=== PATIENT | female | born 1985 | race Caucasian/White ===

== ENCOUNTER 2016-12-30 16:26 | Outpatient (CLI) | payer MEDICAID ==
[~2016-12-30] VITALS: Ht 154.9 cm; Wt 90.0 kg
[2016-12-30 16:32] VITALS: Ht 154.9 cm; Wt 90.0 kg
[2016-12-30 16:33] VITALS: BP 147/72; PULSE 86; RESP 19
[2016-12-30] MEDS ORDERED: PRENAT PO (16:36)
--- NOTE | 2016-12-30 21:20 | RADRPT ---
PROCEDURE: US OB biophysical profile. CLINICAL INDICATION: decreased movements, post dates TECHNIQUE: Multiple sonographic images of the pelvis were obtained. The images were reviewed on a PACS workstation. COMPARISON: No prior studies are available for comparison. FINDINGS: There is a single viable intrauterine gestation. Cardiac activity is present with 156 beats per min shonda. There is a vertex presentation. The placenta is fundal. There is no evidence of placental abruption. There is a normal amount of amniotic fluid with an JAYY = 9.2 cm. Biophysical profile: movement 2/2 tone 2/2. breathing 2/2 JAYY 2/2 Total 04/16 RPTAT: AA . IMPRESSION: Normal biophysical profile. . .Inderjit Hdez MD, Date Time Electronically viewed and signed by .Inderjit Hdez MD, MD on 12/30/2016 21:19 .S/
--- NOTE | 2016-12-30 21:22 | RADRPT ---
PROCEDURE: US OB. CLINICAL INDICATION: Size and dates TECHNIQUE: Multiple sonographic images of the pelvis and gravid uterus were obtained. The images were reviewed on a PACS workstation. COMPARISON: No prior studies are available for comparison. FINDINGS: There is a single viable intrauterine gestation. Cardiac activity is present with 156 beats per min shonda. There is a vertex presentation. The placenta is fundal. There is no evidence of placental abruption. There is a normal amount of amniotic fluid with an JAYY = 9.2 cm. Measurements were made in order to determine age. The results are as follows: BPD =9.5 cm HC =34.1 cm AC =35.6 cm FL =7.7 cm Estimated gestational age of approximately 39 weeks and 2 days based on ultrasound measurements. Clinical age: 40 weeks and 1 day. The estimated date of delivery is 01/04/2017, based on ultrasound measurements. The EFW = 3766 g, 60%, based on LMP age. RPTAT: AA IMPRESSION: Single viable intrauterine gestation of approximately 39 weeks and 2 days based on ultrasound measu rements. .Inderjit Hdez MD, MD Date Time Electronically viewed and signed by .Inderjit Hdez MD, MD on 12/30/2016 21:22 .S/
--- NOTE | 2016-12-30 22:20 | TRIAGE ---
OB Triage Datetime Report Generated by CPN: 12/30/2016 22:20 Datetime: 12/30/2016 22:00 Stage of : OB Triage Labor Evaluation Frequency: 6-9 Monitor Mode: External Duration (sec)2399: 60-90 Quality: Mild Pattern: Normal: <= 5 Contractions in 10 Minutes Resting Tone [place]: Relaxed Heart Rate FHR Baseline Rate: 145 Monitor Mode: External US Variability: Moderate 6-25 bpm Accelerations: 15X15 Decelerations: None Pain Assessment Pain Scale: 0 Pain Presence: None/Denies Pain Type: N/A Pain Goal: 3 Datetime: 12/30/2016 21:58 Vaginal Exam Dilatation (cms): 1.0 Effacement (%): 30 Station: -3 Exam By: REICHE Membrane Status: Intact Datetime: 12/30/2016 21:00 Stage of : OB Triage Labor Evaluation Frequency: 6-9 Monitor Mode: External Duration (sec)2399: 60-90 Quality: Mild Pattern: Normal: <= 5 Contractions in 10 Minutes Resting Tone [place]: Relaxed Heart Rate FHR Baseline Rate: 145 Monitor Mode: External US Variability: Moderate 6-25 bpm Accelerations: 15X15 Decelerations: None Pain Assessment Pain Scale: 0 Pain Presence: None/Denies Pain Type: N/A Pain Goal: 3 Datetime: 12/30/2016 20:00 Stage of : OB Triage Labor Evaluation Frequency: 4-8 Monitor Mode: External Duration (sec)2399: 60-90 Quality: Mild Pattern: Normal: <= 5 Contractions in 10 Minutes Resting Tone [place]: Relaxed Heart Rate FHR Baseline Rate: 145 Monitor Mode: External US Variability: Moderate 6-25 bpm Accelerations: 15X15 Decelerations: None Category: Category I Pain Assessment Pain Scale: 0 Pain Presence: None/Denies Pain Type: N/A Pain Goal: 3 Datetime: 12/30/2016 19:00 Stage of : OB Triage Maternal Assessment Level of Consciousness: Fully Conscious DTR's/Clonus: DTRs 1+ Headache: Denies Breath Sounds, Left: Clear and Equal Breath Sounds, Right: Clear and Equal Nausea/Vomiting: Denies RUQ Epigastric Pain: Denies Labor Evaluation Frequency: IRREGULAR Monitor Mode: External Duration (sec)2399: 60-90 Quality: Mild Pattern: Normal: <= 5 Contractions in 10 Minutes Resting Tone [place]: Relaxed Heart Rate FHR Baseline Rate: 140 Monitor Mode: External US Variability: Moderate 6-25 bpm Accelerations: 15X15 Decelerations: None Pain Assessment Pain Scale: 0 Pain Presence: None/Denies Pain Type: N/A Pain Goal: 3 Membrane Status: Intact Datetime: 12/30/2016 18:00 Stage of : OB Triage Maternal Assessment Level of Consciousness: Fully Conscious DTR's/Clonus: DTRs 1+ Headache: Denies Breath Sounds, Left: Clear and Equal Breath Sounds, Right: Clear and Equal Nausea/Vomiting: Denies RUQ Epigastric Pain: Denies Labor Evaluation Frequency: IRREGULAR Monitor Mode: External Duration (sec)2399: 60-90 Quality: Mild Pattern: Normal: <= 5 Contractions in 10 Minutes Resting Tone [place]: Relaxed Heart Rate FHR Baseline Rate: 140 Monitor Mode: External US Variability: Moderate 6-25 bpm Accelerations: 15X15 Decelerations: None Category: Category I Pain Assessment Pain Scale: 0 Pain Presence: None/Denies Pain Type: N/A Pain Goal: 3 Membrane Status: Intact Datetime: 12/30/2016 17:00 Maternal Assessment Level of Consciousness: Fully Conscious DTR's/Clonus: DTRs 1+ Headache: Denies Blurred Vision: No Respiratory Effort: Unlabored Breath Sounds, Left: Clear and Equal Breath Sounds, Right: Clear and Equal Nausea/Vomiting: Denies RUQ Epigastric Pain: Denies Facial Edema: None Labor Evaluation Frequency: IRREGULAR Monitor Mode: External Duration (sec)2399: 60-90 Quality: Mild Pattern: Normal: <= 5 Contractions in 10 Minutes Resting Tone [place]: Relaxed Heart Rate FHR Baseline Rate: 140 Monitor Mode: External US Variability: Moderate 6-25 bpm Accelerations: 15X15 Decelerations: None Category: Category I Pain Assessment Pain Scale: 0 Pain Presence: None/Denies Pain Type: N/A Pain Goal: 3 Membrane Status: Intact Datetime: 12/30/2016 16:31 Assessment Type: Triage EGA: 40.1 Maternal Assessment Level of Consciousness: Fully Conscious DTR's/Clonus: DTRs 2+; No Clonus Headache: Denies Blurred Vision: No Respiratory Effort: Unlabored; Regular Rhythm; Equal Expansion Breath Sounds, Left: Clear and Equal Breath Sounds, Right: Clear and Equal Nausea/Vomiting: Denies RUQ Epigastric Pain: Denies Lower Extremities Edema: None Degree: None Upper Extremities Edema: None Degree: None Facial Edema: None Fall Risk Assessment History of Falling: (0) No Secondary Diagnosis: (0) No Ambulatory Aid: (0) Bedrest/Nurse Assist IV Therapy: (0) No Gait: (0) Normal/Bedrest/Immobile Mental Status: (0) Oriented to Own Ability Fall Score: 0 Fall Risk Score Definition: No Risk: No action required Datetime: 12/30/2016 16:26 Time of Arrival: 12/30/2016 16:26 Arrived By: Ambulatory Arrived From: Home Chief Complaint: PT CAME IN WITH A DOCTORS PRESCRIPTION FOR NST AND BPP FOR POST DATES Movement: Present Contractions: Denies/Absent Contractions: 5-7 Rupture of Membranes: Denies Vaginal Bleeding: None Vaginal Discharge: Present Recent Sexual Intercouse: Denies Abdominal Trauma: Not Applicable Patient Complaints: None Additional Patient Complaints: NONE Time Provider Notified: 12/30/2016 16:31 Provider Notified: EDIS Initial Plan: NST, BPP AND EFW
--- NOTE | 2016-12-30 22:26 | QN ---
Documentation Comment [facility]ist [facility]/Dr Reina 31 y.o. with an IUP at 40w1d here for post-dates NST/BPP. Pt denies any contractions or cramping, leaking, or bleeding. She feels the baby moving normally. PMHx: none. PSHx: none POBHx: x 2, the last of which was 6 years ago, 5 days before the due date and her labor was 10 hours. Both children were approximately 6 and 1/2# at . NKDA. BP 120/61 T=98.6. NST: baseline 140 bpm with accels to 160 bpm. No decels. UC's q 5 to 9 minutes, mild and not felt by pt. BPP 04/16. JAYY 9.2cm. VTX. EFW 3766 gms. CX: thick/ FT/posterior/medium/-3/VTX. A: IUP at 40w 1d. Post-dates. P: Discussed with pt that this baby is 2# larger than her other children and that may be why the head is high and cx is still thick. Her baby otherwise is doing fine. Offered her an induction now or to have her come back in a few days for a repeat BPP/NST with a review of the pros and cons of each and the pt opted to leave and return for follow-up in 3-4 days. Reviewed kick counts with the pt. UNRULY ANDREWS MD Dec 30, 2016 22:25
== END 2016-12-30 22:15 | disposition home or self-care (01) ==
LOC: OBT 16:26 → L-D 16:28 → OBT 22:15
PROVIDERS: ATTEND Obstetrics & Gynecology
DX: O48.0 Post-term pregnancy (principal); Z3A.40 40 weeks gestation of pregnancy
CPT/HCPCS: 76815; 76818

== ENCOUNTER 2017-01-02 11:48 | Inpatient (IN) | payer MEDICAID ==
[~2017-01-02] VITALS: Ht 160 cm; Wt 93.1 kg
[~2017-01-02 11:48] MED LIST: PRENAT PO
[2017-01-02 12:12] VITALS: BP 113/58; RESP 18; Ht 160 cm; Wt 93.1 kg
--- NOTE | 2017-01-02 13:36 | RADRPT ---
PROCEDURE: US OB biophysical profile. CLINICAL INDICATION: decreased movements, post dates TECHNIQUE: Multiple sonographic images of the pelvis were obtained. The images were reviewed on a PACS workstation. COMPARISON: 12/30/16 FINDINGS: There is a single viable intrauterine gestation. Cardiac activity is present with 134 beats per min [place]. There is a vertex presentation. The placenta is posterior. There is no evidence of placental abruption. There is a normal amount of amniotic fluid with an JAYY = 8.3 cm. Biophysical profile: movement 2/2 tone 2/2. breathing 2/2 JAYY 2/2 Total 04/16 RPTAT: AA . IMPRESSION: Normal biophysical profile. . .Inderjit Hdez MD, MD Date Time Electronically viewed and signed by .Inderjit Hdez MD, MD on 01/02/2017 13:36 .S/
--- NOTE | 2017-01-02 13:37 | RADRPT ---
PROCEDURE: US OB. CLINICAL INDICATION: Size and dates , post dates TECHNIQUE: Multiple sonographic images of the pelvis and gravid uterus were obtained. The images were reviewed on a PACS workstation. COMPARISON: 12/30/16 FINDINGS: There is a single viable intrauterine gestation. Cardiac activity is present with 152 beats per min shonda. There is a vertex presentation. The placenta is posterior. There is no evidence of placental abruption. There is a normal amount of amniotic fluid with an JAYY = 8.3 cm. Measurements were made in order to determine age. The results are as follows: BPD =9.4 cm HC =32.9 cm AC =34.7 cm FL =7.5 cm Estimated gestational age of approximately 38 weeks and 2 days based on ultrasound measurements. Clinical age: 40 weeks and 4 days. The estimated date of delivery is 01/14/17, based on ultrasound measurements. The EFW = 3489 g, 31%, based on LMP age. RPTAT: AA IMPRESSION: Single viable intrauterine gestation of approximately 38 weeks and 2 days based on ultrasound measu rements. Smaller than clinical age by 2 weeks. .Inderjit Hdez MD, Date Time Electronically viewed and signed by .Inderjit Hdez MD, on 01/02/2017 13:37 .S/
--- NOTE | 2017-01-02 13:57 | TRIAGE ---
OB Triage Datetime Report Generated by CPN: 01/02/2017 13:57 Datetime: 01/02/2017 13:00 Stage of : OB Triage Maternal Assessment Level of Consciousness: Fully Conscious Labor Evaluation Monitor Mode: External Duration (sec)2399: 80-140 Quality: Mild Resting Tone [place]: Relaxed Heart Rate FHR Baseline Rate: 150 Monitor Mode: External US Variability: Moderate 6-25 bpm Accelerations: 15X15 Decelerations: None Pain Assessment Pain Scale: 0 Pain Goal: 3 Vaginal Exam Membrane Status: Intact Vaginal Bleeding: None Datetime: 01/02/2017 12:32 EGA: 40.6 Datetime: 01/02/2017 12:10 Assessment Type: Triage Maternal Assessment Level of Consciousness: Fully Conscious DTR's/Clonus: DTRs 2+; No Clonus Headache: Denies Blurred Vision: No Respiratory Effort: Unlabored; Regular Rhythm; Equal Expansion Breath Sounds, Left: Clear and Equal Breath Sounds, Right: Clear and Equal Nausea/Vomiting: Denies RUQ Epigastric Pain: Denies Lower Extremities Edema: None Degree: None Upper Extremities Edema: None Degree: None Facial Edema: None Fall Risk Assessment History of Falling: (0) No Secondary Diagnosis: (0) No Ambulatory Aid: (0) Bedrest/Nurse Assist IV Therapy: (0) No Gait: (0) Normal/Bedrest/Immobile Mental Status: (0) Oriented to Own Ability Fall Score: 0 Fall Risk Score Definition: No Risk: No action required Datetime: 01/02/2017 12:08 Time of Arrival: 01/02/2017 11:42 EGA: 40.4 Arrived By: Ambulatory Arrived From: Office Chief Complaint: PT SENT IN FOR EVAL OF POST DATES Movement: Present Contractions: Denies/Absent Rupture of Membranes: Denies Vaginal Bleeding: None Vaginal Discharge: Denies Recent Sexual Intercouse: Denies Abdominal Trauma: Not Applicable Patient Complaints: None Time Provider Notified: 01/02/2017 12:18 Provider Notified: [facility] Initial Plan: EFM, SVE, BPP, EFW Datetime: 01/02/2017 12:01 Labor Evaluation Monitor Mode: External Monitor Mode: External US Datetime: 12/30/2016 16:31 EGA: 40.1 Fall Score: 0 Fall Risk Score Definition: No Risk: No action required
[2017-01-02] MEDS ORDERED: LACTATED RINGER'S 1,000 ML IV PRN (14:39)
[2017-01-02] MEDS: LACTATED RINGER'S 1,000 ML IV SCH (14:49)
[2017-01-02 14:58] LABS: ADD SCAN DIFF NO
[2017-01-02 14:59] LABS: BASOPHILS % 0.1 % (0.0-2.0); EOSINOPHILS # 0.1 10^3/ul (0.0-0.5); EOSINOPHILS % 0.7 % (0.0-7.0); HEMATOCRIT 36.1 % (37.0-47.0); HEMOGLOBIN 11.8 g/dl (12.0-16.0); LYMPHOCYTES # 2.3 10^3/ul (0.8-2.9); LYMPHOCYTES % 23.3 % (15.0-51.0); MEAN CORPUSCULAR HGB CONC 32.7 g/dl (32.0-37.0); MEAN CORPUSCULAR VOLUME 88.7 fl (82.0-101.0); MEAN PLATELET VOLUME 11.7 fl (7.4-10.4); MONOCYTE # 0.7 10^3/ul (0.3-0.9); MONOCYTES % 7.6 % (0.0-11.0); NEUTROPHIL # 6.7 10^3/ul (1.6-7.5); NEUTROPHILS % 67.9 % (39.0-77.0); PLATELET COUNT 255 10^3/UL (140-415); RED BLOOD COUNT 4.07 10^6/ul (4.20-5.40); RED CELL DISTRIBUTION WIDTH 15.1 % (11.5-14.5); WHITE BLOOD COUNT 9.8 10^3/ul (4.8-10.8)
[2017-01-02] MEDS ORDERED: AMPICILLIN 2 GM/NS (PMX) 100 ML IV ONE (15:00)
[2017-01-02] MEDS ORDERED: IBUPROFEN 600 MG TAB PO PRN (15:00)
[2017-01-02] MEDS ORDERED: MISOPROSTOL 200 MCG TAB PR PRN (15:00)
[2017-01-02] MEDS ORDERED: METHYLERGONOVINE 0.2 MG INJ IM PRN (15:00)
[2017-01-02] MEDS ORDERED: CARBOPROST 250 MCG INJ IM PRN (15:00)
[2017-01-02] MEDS ORDERED: OXYTOCIN 30 UNITS/LR 500 ML IV SCH ×2 (15:00)
[2017-01-02] MEDS ORDERED: LIDOCAINE 1% (MPF) 30 ML INJ INJ PRN (15:00)
[2017-01-02] MEDS ORDERED: OXYTOCIN 30 UNITS/LR 500 ML IV PRN (15:00)
[2017-01-02 15:17] LABS: INR 0.85; PARTIAL THROMBOPLASTIN TIME 24.2 Sec (25.0-35.0); PROTIME 11.6 Sec (12.2-14.2); PT RATIO 0.9
[2017-01-02] MEDS ORDERED: DINOPROSTONE 10 MG VAG SUPP VAG ONE (15:30)
[2017-01-02] MEDS ORDERED: AMPICILLIN 1 GM/NS (PMX) 50 ML IV SCH (18:00)
[2017-01-03] MEDS: AMPICILLIN 1 GM/NS (PMX) 50 ML IV SCH ×5 (03:54→16:07)
[2017-01-03] MEDS ORDERED: DINOPROSTONE 10 MG VAG SUPP VAG ONE (04:15)
[2017-01-03] MEDS: BUTORPHANOL 2 MG INJ IV PRN ×2 (05:02→13:44)
[2017-01-03] MEDS: LACTATED RINGER'S 1,000 ML IV SCH ×3 (09:05→16:44)
[2017-01-03] MEDS ORDERED: OXYTOCIN 30 UNITS/LR 500 ML IV SCH (13:30)
--- NOTE | 2017-01-03 17:14 | LDN ---
Date/Time of Note Date/Time of Note DATE: 01/03/17 TIME: 17:07 Delivery Summary Normal spontaneous vaginal delivery of a baby boy from OA position cord was clamped after stopped pulsation placenta spontaneous expulsion inspected complete patient sustained first-degree perineal laceration repaired with 3-0 and 4-0 chromic catgut Weeks of Gestation 40 weeks 6 day Placenta Delivered: Spontaneously Meconium: none Episiotomy: No Perineal laceration: 1 Laceration repair: First-degree perineal laceration repaired with 3 0 and 4-0 chromic catgut Anesthesia type: Local Estimated blood loss: 200 Sponge & Needle done & correct: Yes All needle counts correct: Yes Any foreign bodies felt in the: No Problems: Infant Delivery Information Sex Infant Sex: male Apgars 1 Minute: 9 5 Minute: 9 Suctioning Nose & mouth suctioned at noah: Yes Delee suction performed: No Umbilical Cord Cord presentations: no nuchal cord Cord Blood was obtained: Yes NICK VALLE MD Jan 03, 2017 17:14
--- NOTE | 2017-01-03 17:23 | HP ---
Date/Time of Note Date/Time of Note DATE: 01/03/17 TIME: 17:14 OB - History Hx of Present Free Text/Dictation This is a 31 years old female 3 para 2 EDC of December 27, 2016 admitted to [facility] at 40 weeks and 6 days for induction of labor this patient has been under the care of [place] [facility] and her course was not complicated with gestational diabetes - induced hypertension or any other serious surgical or medical conditions pelvic examination on admission cervical dilatation 0 effacement 30% vertex is -3 -4 station Cervidil induction discussed with the patient pros and cons explained patient agreed to proceed with the Cervidil induction. After admission patient had an ultrasound for estimated weight reported 3489 gm Chief Complaint: 40 weeks 6 days Estimated Due Date: Dec 27, 2016 : 3 Para: 2 Care: Good Care Ultrasounds: Normal mid trimester US Obstetrical Complications: None Medical Complications: None Past Family/Social History * Past Medical, Surgical, Family and Obstetric Histories reviewed from chart. Rubella: immune RPR/VDRL: Negative GBS Status: Negative OB Admission Exam Vital Signs Vital Signs Vital Signs Date Time Temp Pulse Resp B/P Pulse Ox O2 Delivery O2 Flow Rate FiO2 01/02/17 12:12 98.7 18 113/58 Room Air Physical Exam HEENT: WNL Heart: Rhythm Normal Lungs: Clear, Equal Abdomen: WNL Extremities: Normal Reflexes: Normal Cervical Dilatation: None Effacement: 25% Station: -3 Membranes: Intact Heart Rate: 130's Accelerations: Accelerations Present Decelerations: No Decelerations Varibility: Absent Last 72 hours Lab Results CBC & BMP 01/02/17 14:30 OB Assessment/Plan Reason for admission: other (Induction of labor with Cervidil) NICK VALLE MD Jan 03, 2017 17:23
[2017-01-03] MEDS ORDERED: ACETAMINOPHEN 325 MG TAB PO PRN (18:00)
[2017-01-03] MEDS ORDERED: DIBUCAINE 1% 30 GM OINT PR PRN (18:00)
[2017-01-03] MEDS ORDERED: WITCH HAZEL/GLYCERIN PAD PR PRN (18:00)
[2017-01-03] MEDS ORDERED: ACETAMINOPHEN/CODEINE #3 TAB PO PRN ×2 (18:00)
[2017-01-03] MEDS: IBUPROFEN 600 MG TAB PO SCH ×2 (18:00→23:42)
[2017-01-03] MEDS ORDERED: BENZOCAINE 20% 56 ML SPRAY TOP PRN (18:00)
[2017-01-03] MEDS ORDERED: OXYCODONE/ASPIRIN (4.88/325) TAB PO PRN ×2 (18:00)
[2017-01-03] MEDS ORDERED: LANOLIN 7 GM TUBE TOP PRN (18:00)
[2017-01-03 18:30] VITALS: BP 117/61; PULSE 86; RESP 18
[2017-01-03 20:30] VITALS: BP 109/60; PULSE 95; RESP 20
[2017-01-03] MEDS: SENNA/DOCUSATE NA (8.6MG/50MG) TAB PO SCH (20:33)
[2017-01-03] MEDS: OXYTOCIN 30 UNITS/LR 500 ML IV SCH (21:39)
[2017-01-03 23:45] VITALS: BP 111/56; PULSE 87; RESP 17
[2017-01-04] MEDS: OXYTOCIN 30 UNITS/LR 500 ML IV SCH (01:40)
[2017-01-04 04:15] VITALS: BP 117/65; PULSE 85; RESP 20
[2017-01-04] MEDS: IBUPROFEN 600 MG TAB PO SCH ×3 (05:44→17:34)
[2017-01-04 07:17] LABS: ADD SCAN DIFF NO
[2017-01-04 07:20] LABS: BASOPHILS % 0.3 % (0.0-2.0); EOSINOPHILS # 0.1 10^3/ul (0.0-0.5); EOSINOPHILS % 0.5 % (0.0-7.0); HEMATOCRIT 33.9 % (37.0-47.0); HEMOGLOBIN 10.9 g/dl (12.0-16.0); LYMPHOCYTES # 2.3 10^3/ul (0.8-2.9); LYMPHOCYTES % 16.5 % (15.0-51.0); MEAN CORPUSCULAR HEMOGLOBIN 28.8 pg (29.0-33.0); MEAN CORPUSCULAR HGB CONC 32.2 g/dl (32.0-37.0); MEAN CORPUSCULAR VOLUME 89.4 fl (82.0-101.0); MEAN PLATELET VOLUME 11.5 fl (7.4-10.4); MONOCYTE # 1.1 10^3/ul (0.3-0.9); MONOCYTES % 7.6 % (0.0-11.0); NEUTROPHIL # 10.3 10^3/ul (1.6-7.5); NEUTROPHILS % 74.7 % (39.0-77.0); PLATELET COUNT 217 10^3/UL (140-415); RED BLOOD COUNT 3.79 10^6/ul (4.20-5.40); RED CELL DISTRIBUTION WIDTH 15.3 % (11.5-14.5); WHITE BLOOD COUNT 13.7 10^3/ul (4.8-10.8)
[2017-01-04 08:00] VITALS: BP 109/64; PULSE 89; RESP 18
[2017-01-04] MEDS: SENNA/DOCUSATE NA (8.6MG/50MG) TAB PO SCH ×2 (08:32→21:05)
--- NOTE | 2017-01-04 09:43 | PN ---
Date/Time of Note Date/Time of Note DATE: 01/04/17 TIME: 09:42 OB Subjective Subjective Subjective Post normal vaginal delivery day 1 Afebrile vital signs stable abdomen soft uterus firm lochia normal extremity normal ambulation encouraged Laboratory Tests Test 01/04/17 07:10 White Blood Count 13.710^3/ul Red Blood Count 3.7910^6/ul Hemoglobin 10.9g/dl Hematocrit 33.9% Mean Corpuscular Volume 89.4fl Mean Corpuscular Hemoglobin 28.8pg Mean Corpuscular Hemoglobin Concent 32.2g/dl Red Cell Distribution Width 15.3% Platelet Count 12460^3/UL Mean Platelet Volume 11.5fl Neutrophils % 74.7% Lymphocytes % 16.5% Monocytes % 7.6% Eosinophils % 0.5% Basophils % 0.3% Nucleated Red Blood Cells % 0.0/100WBC Neutrophils # 10.310^3/ul Lymphocytes # 2.310^3/ul Monocytes # 1.110^3/ul Eosinophils # 0.110^3/ul Basophils # 0.010^3/ul Nucleated Red Blood Cells # 0.010^3/ul Current Medications Medications (Trade) Dose Ordered Sig/Ricki Route PRN Reason Start Time Stop Time Status Last Admin Dose Admin Lactated Ringer's 1,000 ml @ 125 mls/hr Q8H IV 01/02/17 14:39 01/03/17 18:02 DC 01/03/17 16:44 Ampicillin 100 ml @ 100 mls/hr ONCE ONCE IV 01/02/17 15:00 01/02/17 15:59 DC 01/02/17 15:49 Ampicillin (Ampicillin 1 Gm/ NS (Pmx)) 50 ml @ 100 mls/hr Q4H IV 01/02/17 18:00 01/02/17 22:39 DC 01/02/17 20:27 Butorphanol Tartrate (Stadol) 2 mg Q2H PRN IV PAIN 01/02/17 15:00 01/03/17 18:02 DC 01/03/17 13:44 Lidocaine 30 ml 30 ml ONCE PRN INJ EPISIOTOMY/TEARING 01/02/17 15:00 01/03/17 18:02 DC Oxytocin/Lactated Ringer's 500 ml @ 125 mls/hr ONCE -MAY REPEAT X1 IV 01/02/17 15:00 01/03/17 18:02 DC 01/03/17 16:44 Oxytocin/Lactated Ringer's 500 ml @ 125 mls/hr ONCE IV 01/02/17 15:00 01/03/17 18:02 DC Ibuprofen 600 mg 600 mg ONCE PRN PO Mild Pain (Pain Score 1-3) 01/02/17 15:00 01/03/17 18:02 DC 01/03/17 17:20 Lactated Ringer's 1,000 ml @ 2,000 mls/hr Q30M PRN IV PRE-EPIDURAL BOLUS 01/02/17 14:39 01/03/17 18:03 DC Oxytocin/Lactated Ringer's 500 ml @ 0 mls/hr ONCE PRN IV For Hemorrhage Management 01/02/17 15:00 01/03/17 18:03 DC Methylergonovine Maleate (Methergine) 0.2 mg ONCE PRN IM VAGINAL BLEEDING 01/02/17 15:00 01/03/17 18:03 DC Carboprost Tromethamine (Hemabate) 250 mcg ONCE PRN IM VAGINAL BLEEDING 01/02/17 15:00 01/03/17 18:03 DC Misoprostol (Cytotec) 1,000 mcg ONCE PRN [place] VAGINAL BLEEDING 01/02/17 15:00 01/03/17 18:03 DC Dinoprostone 10 mg 10 mg ONCE ONCE VAG 01/02/17 15:30 01/02/17 15:37 DC 01/02/17 15:49 Ampicillin (Ampicillin 1 Gm/ NS (Pmx)) 50 ml @ 100 mls/hr Q4H IV 01/03/17 00:00 01/03/17 18:02 DC 01/03/17 16:07 Dinoprostone 10 mg 10 mg ONCE ONCE VAG 01/03/17 04:15 01/03/17 04:16 DC 01/03/17 04:16 Oxytocin/Lactated Ringer's 500 ml @ 0 mls/hr Q0M IV 01/03/17 13:30 01/03/17 18:02 DC 01/03/17 13:37 Oxytocin/Lactated Ringer's 500 ml @ 125 mls/hr Q4H IV 01/03/17 17:59 01/04/17 01:58 DC 01/04/17 01:40 Ibuprofen (Motrin) 600 mg Q6 PO 01/03/17 18:00 01/04/17 05:44 Acetaminophen (Tylenol Tab) 650 mg Q4H PRN PO PAIN LEVEL 1-5 01/03/17 18:00 Acetaminophen/ Codeine Phosphate (Tylenol No.3) 1 tab Q4H PRN PO PAIN LEVEL 1-5 01/03/17 18:00 Acetaminophen/ Codeine Phosphate (Tylenol No.3) 2 tab Q4H PRN PO PAIN LEVEL 6-10 01/03/17 18:00 Oxycodone/Aspirin (Percodan) 1 tab Q3H PRN PO PAIN LEVEL 1-5 01/03/17 18:00 Oxycodone/Aspirin (Percodan) 2 tab Q3H PRN PO PAIN LEVEL 6-10 01/03/17 18:00 Senna/Docusate Sodium (Senokot-S) 1 tab BID PO 01/03/17 21:00 01/04/17 08:32 Witch [place]/ Glycerin (Tucks Pads) 1 pad BEDSIDE MEDICATION PRN [place] HEMORRHOID/EPISIOTMY PAIN 01/03/17 18:00 01/03/17 20:33 Benzocaine (Dermoplast [place]) 1 spray BEDSIDE MEDICATION PRN TOP HEMORRHOID/EPISIOTMY PAIN 01/03/17 18:00 01/03/17 20:33 Dibucaine (Nupercainal) 1 applic BEDSIDE MEDICATION PRN [place] HEMORRHOID/EPISIOTMY PAIN 01/03/17 18:00 Lanolin ([id number]) 1 applic BEDSIDE MEDICATION PRN TOP BEDSIDE FOR BARBARA TO NIPPLES 01/03/17 18:00 Measles/Mumps/ Rubella Vaccine Live (Mmr Ii Vaccine) 0.5 ml ONCE ONCE SC* 01/05/17 09:00 01/05/17 09:01 NICK VALLE MD Jan 04, 2017 09:43
[2017-01-04 20:20] VITALS: BP 128/73; PULSE 89; RESP 19
[2017-01-05 04:00] VITALS: BP 118/57; PULSE 90; RESP 18
[2017-01-05] MEDS: IBUPROFEN 600 MG TAB PO SCH ×3 (06:08→11:28)
[2017-01-05 08:00] VITALS: BP 122/70; PULSE 80; RESP 18
[2017-01-05] MEDS: SENNA/DOCUSATE NA (8.6MG/50MG) TAB PO SCH (08:34)
[2017-01-05] MEDS ORDERED: MEASLES,MUMPS,RUBELLA VACCINE INJ SC* ONE (09:00)
--- NOTE | 2017-01-05 09:29 | PD.PPDC ---
DISABILITY MANAGER Discharge Instruction Condition Patient Condition: Good Diet Diet: Resume Regular Diet Activity/Restrictions Restrictions: No Exercising No Lifting No Driving No Sexual Activity Nothing in the Vagina No [place] No Tampons, douche Follow-up Follow-up with Physician: 2, Week/Weeks Provider Information: Appointment clinic in 2 weeks for follow-up Return to clinic for VENEREAL DISEASE CONTROL HEAD Instructions: Fever greater than 101 Worsening abdominal pain Excessive Vaginal Bleeding More than 2 pads per hour Unable to tolerate diet OB Instructions: Breast Tenderness Blurried Vision Headache NICK VALLE MD Jan 05, 2017 09:29
--- NOTE | 2017-01-05 09:32 | DS ---
Date/Time of Note Date/Time of Note DATE: 01/05/17 TIME: 09:30 Discharge Summary Admission/Discharge Info Admit Date/Time Jan 02, 2017 at 13:58 Discharge Date/Time January 05, 2017 at 10 AM Final Diagnosis Term day 2 Patient Condition: Good Procedures Normal vaginal delivery Hx of Present Illness Term Hospital Course Satisfactory Home Meds Reported Medications Multivit/Min/Fol Ac/Iron/Pren* ( S*) 1 Tab Tab, 1 TAB PO DAILY, TAB 12/30/16 Follow-up Plan instructions given recommended appointment at the clinic in 2 weeks NICK VALLE MD Jan 05, 2017 09:32
== END 2017-01-05 16:24 | disposition home or self-care (01) | DRG 775 ==
LOC: L-D 11:48 → OBT 11:48 → L-D 13:58 → PP1 01-03 18:20
PROVIDERS: ADMIT Obstetrics & Gynecology; ATTEND Obstetrics & Gynecology
PROC: 10E0XZZ Delivery of Products of Conception, External Approach (ICD-10-PCS; principal; 2017-01-03)
PROC: 0HQ9XZZ Repair Perineum Skin, External Approach (ICD-10-PCS; 2017-01-03)
DX: O48.0 Post-term pregnancy (principal); O70.0 First degree perineal laceration during delivery; Z3A.40 40 weeks gestation of pregnancy; Z37.0 Single live birth
CPT/HCPCS: 76815; 76818; 85025; 85610; 85730; 86592; 86900; 86901; G0463; J0290; J2590; J7120